=== PATIENT | female | born 1955 | race Caucasian/White ===

== ENCOUNTER 2017-06-30 07:57 | Day surgery (SDC) | payer MEDICARE ==
[2017-06-29 08:24] VITALS: BMI 32.9
[~2017-06-30 07:57] MED LIST: LACTATED RINGERS 1,000 ML IV ONE
[2017-06-30 08:24] LABS: Glucose,Whole Blood 140 mg/dL (75-99)
[2017-06-30] MEDS ORDERED: ONDANSETRON 4 MG/2 ML VIAL IVP ONE (08:25)
[2017-06-30] MEDS ORDERED: PROPOFOL 10 MG/ML 20 ML VIAL IV ONE (08:27)
[2017-06-30 08:29] VITALS: RESP 16; TEMP 98.8
--- NOTE | 2017-06-30 09:19 | P.PCN ---
Date of Procedure: 06/30/17 Procedure(s) Performed: Procedures: 1. Esophagogastroduodenoscopy and biopsy. 2. Colonoscopy and biopsy. Preoperative diagnosis: Epigastric pain, change in bowels and rectal bleeding. Postoperative diagnosis: 1. Sliding hiatal hernia with no obvious esophagitis or complicated reflux disease. 2. Gastritis with no ulcers or gastric outlet obstruction. 3. Multiple biopsies obtained from the duodenum, antrum, cardia and esophagus. 4. 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 5. Biopsies obtained from the terminal ileum and random colon and sigmoid. Preparation: HalfLytely prep. Sedation: Was provided by anesthesia. Brief clinical history: The patient is a 61-year-old female who has been experiencing epigastric pain and multiple loose bowel movements over the last year or so. The patient has history of diabetes mellitus and had issues with irritable bowel syndrome in the past. Her last colonoscopy 5 or 6 years ago was normal. Because of the persistent symptoms she is scheduled for this evaluation. Procedure: With the patient on her left lateral decubitus position and after informed consent and adequate sedation, I passed the Olympus-GIF 160 video upper endoscope through the cricopharyngeus down the esophagus. The esophagus did not show any obvious erosions or ulcers. There were no strictures or Strong's esophagus. There was a small sliding hiatal hernia then the endoscope was passed into the stomach which was insufflated with air and inspected in detail including the retroflex view in the cardia. There was some mottling and erythema in the antrum and fading erosions and there was prominence of the fold and friability in the cardia but there were no ulcers or bleeding. Pyloric channel did not show any ulcers. Duodenal bulb, post bulbar area and descending duodenum appeared within normal limits. Because of her symptoms, I obtained biopsies from the duodenum, antrum, cardia and esophagus then the endoscope was withdrawn and I proceeded with the colonoscopy. Perianal area did not show any fissures or fistulas. There were no masses felt on digital rectal examination. The Olympus CFQ 160L video colonoscope was then inserted in the rectum in the usual fashion and advanced to the cecum. I intubated the ileocecal valve and examined the terminal ileum. Terminal ileum and colon appeared healthy up to around 30 cm from the anal canal where there was continuous abnormality of the mucosa consisting of edema, erythema, friability, small ulcerations but no exudation or spontaneous bleeding. 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 No polyps or tumors were seen or any obvious diverticular disease. I obtained biopsies from the terminal ileum, random colon as well as from the sigmoid before the endoscope was withdrawn. The patient tolerated the procedure well. Plan: I summarized the findings to the patient. I would go ahead and start her on mesalamine. I will see her in follow-up in the office and make additional recommendations based on her course and biopsy results.. I will keep you updated on her progress.
[2017-06-30 09:23] VITALS: BP 144/76
[2017-06-30 09:35] LABS: Glucose,Whole Blood 122 mg/dL (75-99)
[2017-06-30 09:36] VITALS: PULSE 68
== END 2017-06-30 10:07 | disposition home or self-care (01) ==
LOC: ORWHC2ENDO 07:57
DX: K51.311 Ulcerative (chronic) rectosigmoiditis with rectal bleeding (principal); K29.50 Unspecified chronic gastritis without bleeding; K44.9 Diaphragmatic hernia without obstruction or gangrene; E11.9 Type 2 diabetes mellitus without complications; I10 Essential (primary) hypertension; E78.5 Hyperlipidemia, unspecified; K21.9 Gastro-esophageal reflux disease without esophagitis; Z79.84 Long term (current) use of oral hypoglycemic drugs; Z79.899 Other long term (current) drug therapy; Z91.040 Latex allergy status; Z88.0 Allergy status to penicillin; Z88.2 Allergy status to sulfonamides; Z88.8 Allergy status to other drugs, medicaments and biological substances; Z91.09 Other allergy status, other than to drugs and biological substances
CPT/HCPCS: 88305; 45380; 43239; J2405; J2704

== ENCOUNTER → 2018-06-05 | Outpatient (CLI) | payer MEDICARE ==
--- NOTE | 2018-06-06 08:57 | MM ---
Reason for exam: clinical finding. Last mammogram was performed 2 years and 1 month ago. History: Patient is postmenopausal. Physical Findings: Nurse did not find any significant physical abnormalities on exam. MG 3D Diag Mammo W/Cad JIMBO Bilateral CC and MLO view(s) were taken. Prior study comparison: April 22, 2016, bilateral MG 3d screening mammo w/cad. November 23, 2012, bilateral digital screening mammo w/CAD. There are scattered fibroglandular densities. There is chronic nodularity bilaterally. There is no dominant lesion. No significant new findings when compared with previous films. These results were verbally communicated with the patient and result sheet given to the patient on 06/05/18. ASSESSMENT: Benign, BI-RAD 2 RECOMMENDATION: Routine screening mammogram of both breasts in 1 year. Manage patient on a clinical basis.
== END | disposition home or self-care (01) ==
LOC: RADMAMWWP 09:44
PROVIDERS: ATTEND Internal Medicine
DX: N64.4 Mastodynia (principal)
CPT/HCPCS: 77066; G0279; 77062

== ENCOUNTER 2018-07-13 07:22 | Day surgery (SDC) | payer MEDICARE ==
[2018-07-13 08:05] VITALS: TEMP 97.4
[2018-07-13 08:20] LABS: Glucose,Whole Blood 159 mg/dL (75-99)
[2018-07-13] MEDS ORDERED: MIDAZOLAM 2 MG/2 ML VIAL IV ONE ×2 (08:20→08:28)
[2018-07-13] MEDS ORDERED: ONDANSETRON 4 MG/2 ML VIAL IVP ONE ×2 (08:20→08:28)
[2018-07-13] MEDS ORDERED: LIDOCAINE 1% 20 ML VIAL (10MG/ML) FOR IV START INTRADERMA ONE (08:28)
[2018-07-13] MEDS ORDERED: LACTATED RINGERS 1,000 ML IV ONE (08:30)
[2018-07-13] MEDS ORDERED: LIDOCAINE 1% INJ 10MG/ML (20 ML MDV) ONE (08:37)
[2018-07-13] MEDS ORDERED: PROPOFOL 10 MG/ML 20 ML VIAL IV ONE (08:37)
[2018-07-13 09:24] VITALS: BP 124/54; PULSE 70; RESP 18
--- NOTE | 2018-07-13 09:40 | P.PCN ---
Date of Procedure: 07/13/18 Procedure(s) Performed: Procedure: Esophagogastroduodenoscopy and biopsy. Preoperative diagnosis: Gastroesophageal reflux, epigastric pain and diarrhea. Postoperative diagnosis: 1. Sliding hiatal hernia with no definite esophagitis or complicated reflux disease. 2. Mild gastritis and duodenitis. 3. Biopsies obtained from the duodenum, antrum and esophagus. Preparation and sedation: Was provided by anesthesia. Brief clinical history: The patient is a 62-year-old female who was evaluated in the office in May for symptoms of epigastric pain and acid reflux. I started her on Pepcid with the working of diagnosis of gastroesophageal reflux disease, but, apparently , she was ALLERGIC to this medication and said that she had vomiting and diarrhea for more than a week after she stopped the medication. She felt better on PPI. She denied any alarm symptoms. This evaluation is to assess for esophagitis, complicated reflux disease or other pathology. Procedure: With the patient on her left lateral decubitus position and after informed consent and adequate sedation, I passed the Olympus-GIF H1 90 video upper endoscope through the cricopharyngeus down the esophagus. GE junction was around 36 cm from the incisors and there was a less than 1 cm sliding hiatal hernia but no obvious esophagitis or complicated reflux disease. The endoscope was then passed into the stomach which was insufflated with air and inspected in detail including the retroflex view in the cardia. There was some mottling and erythema in the antrum but no ulcers or erosions. Pyloric channel did not show any ulcers. Duodenal bulb, post bulbar area and descending duodenum showed minimal erythema. I obtained biopsies from the duodenum, antrum and esophagus then the endoscope was withdrawn. The patient tolerated the procedure well. Plan: The patient was reassured. Will await biopsy results and make further plans based on her course and biopsy results.
== END 2018-07-13 09:50 | disposition home or self-care (01) ==
LOC: ORWHC2ENDO 07:22
DX: K21.0 Gastro-esophageal reflux disease with esophagitis (principal); K29.50 Unspecified chronic gastritis without bleeding; K29.80 Duodenitis without bleeding; K31.9 Disease of stomach and duodenum, unspecified; K44.9 Diaphragmatic hernia without obstruction or gangrene; Z88.0 Allergy status to penicillin; Z88.2 Allergy status to sulfonamides; Z88.8 Allergy status to other drugs, medicaments and biological substances; E11.9 Type 2 diabetes mellitus without complications; I10 Essential (primary) hypertension; Z91.040 Latex allergy status; Z79.84 Long term (current) use of oral hypoglycemic drugs
CPT/HCPCS: 88305; 43239; J2250; J2405; J2001; J2704

== ENCOUNTER → 2018-12-08 | Outpatient (CLI) | payer MEDICARE ==
--- NOTE | 2018-12-08 13:22 | CT ---
EXAMINATION TYPE: CT soft tissue neck wo con DATE OF EXAM: 12/08/2018 HISTORY: Sore, itchy throat. COMPARISON: None CT DLP: 602 mGycm. Automated Exposure Control for Dose Reduction was Utilized. TECHNIQUE: CT scan of the neck is performed without contrast FINDINGS: Lack of intravenous contrast could compromise sensitivity. Airway: No gross abnormality seen. Parotid/submandibular glands: No gross abnormality seen. Carotid/Vascular Structures: Not evaluated due to lack of contrast and there is atheromatous change w ithin the transverse aorta Osseous Structures: No significant degenerative disc change is evident. 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 * Other: None IMPRESSION: No significant abnormality is seen.
== END ==
LOC: RADCTMAIN 10:19
PROVIDERS: ATTEND Otolaryngology
DX: M54.2 Cervicalgia (principal)
CPT/HCPCS: 36415; 70490; 82565; 84520

== ENCOUNTER 2018-12-11 06:45 | Emergency (ER) | payer MEDICARE ==
[2018-12-11 06:53] VITALS: TEMP 97.9
[2018-12-11] MEDS ORDERED: SODIUM CHLORIDE 0.9% 1,000 ML IV ONE (07:24)
[2018-12-11 08:09] LABS: Basophils % (A) 1 %; Eosinophils # (A) 0.2 k/uL (0-0.7); Eosinophils % (A) 3 %; HCT 37.1 % (34.0-46.0); HGB 12.3 gm/dL (11.4-16.0); Lymphocytes # (A) 1.8 k/uL (1.0-4.8); Lymphocytes % (A) 29 %; MCH 29.9 pg (25.0-35.0); MCHC 33.1 g/dL (31.0-37.0); MCV 90.5 fL (80.0-100.0); Mean Platelet Volume 7.4; Monocytes # (A) 0.5 k/uL (0-1.0); Monocytes % (A) 8 %; Neutrophils # (A) 3.6 k/uL (1.3-7.7); Neutrophils % (A) 58 %; Platelet Count 299 k/uL (150-450); RDW 13.7 % (11.5-15.5); WBC 6.3 k/uL (3.8-10.6)
[2018-12-11 08:16] LABS: Appearance,Urine Cloudy (Clear); Bacteria,Urine Few /hpf; Bilirubin,Urine Negative (Negative); Blood,Urine Negative (Negative); Color,Urine Yellow; Glucose,Urine (UA) Negative (Negative); Hyaline Casts,Urine 28 /lpf (0-2); Ketones,Urine Negative (Negative); Leukocyte Esterase,Urine Small (Negative); Mucus,Urine Rare /hpf; Nitrite,Urine Negative (Negative); PH, Urine 5.5 (5.0-8.0); Protein,Urine 1+ (Negative); RBC,Urine 4 /hpf (0-5); Squamous Epithelial Cell,Urine 13 /hpf (0-4); Urobilinogen,Urine <2.0 mg/dL (<2.0)
--- NOTE | 2018-12-11 08:16 | ED ---
General Adult HPI - General Chief complaint: Headache Stated complaint: Nausea Time Seen by Provider: 12/11/18 07:03 Source: patient, RN notes reviewed Mode of arrival: ambulatory Limitations: no limitations - History of Present Illness Initial comments: This a 63-year-old female presents emergency Department with multiple complaints. Patient's primary complaint today is headache and nausea. Patient states that she has not felt well over the last week or so has been having that she was sore throat and a fullness feeling in which she was seen by ENT shoulder may related to drainage or infection though they sent her for CT of her neck to rule out mass. Patient was scheduled to have CT with contrast though her kidney function was not well enough for contrast. She states she has no history of prior to this patient states that she does take multiple medications but cannot room last time she had any blood work. Patient denies fever, chills, neck pain, neck stiffness patient states her headache is frontal in nature and not her typical headache. Patient was given Zofran by EMS she denies any chest pain but states that she has been having issues with diarrhea and states that she feels that everything that she eats goes right through her. Patient does state metformin but she has been taking this for a long period of time. She does admi t that she has anxiety and that she has been stressing about her plane flight and her health problems. - Related Data Home Medications Medication Instructions Recorded Confirmed Aspirin EC [Ecotrin] 81 mg PO HS 10/14/15 12/11/18 Benazepril HCl 20 mg PO HS 10/14/15 12/11/18 OXcarbazepine [Trileptal] 150 mg PO HS 10/16/15 12/11/18 Cholecalciferol (Vitamin D3) 2,000 unit PO HS 06/29/17 12/11/18 [Vitamin D3] Prochlorperazine [Compazine] 10 mg PO Q6H PRN 06/29/17 12/11/18 ALPRAZolam [Xanax] 0.25 mg PO TID PRN 07/13/18 12/11/18 Calcium Carbonate/Vitamin D3 1 tab PO HS 07/13/18 12/11/18 [Calcium 250-D Tablet] Diclofenac Sodium/Misoprostol 1 tab PO BID PRN 07/13/18 12/11/18 [Arthrotec 50 mg-200 Mcg Tab] Doxycycline [Vibramycin] 50 mg PO DAILY 07/13/18 12/11/18 glipiZIDE [Glucotrol] 5 mg PO AC-BRKFST 07/13/18 12/11/18 Atorvastatin [Lipitor] 20 mg PO DAILY 12/11/18 12/11/18 metFORMIN HCL 2,000 mg PO BID 12/11/18 12/11/18 Allergies Allergy/AdvReac Type Severity Reaction Status Date / Time famotidine [From Pepcid] Allergy THROWING Verified 12/11/18 06:52 UP, BLOODY DIARRHEA latex Allergy Unknown Verified 12/11/18 06:52 Penicillins Allergy Unknown Verified 12/11/18 06:52 Childhood Sulfa (Sulfonamide Allergy Rash/Hives Verified 12/11/18 06:52 Antibiotics) adhesive tape AdvReac Rash/Hives Verified 12/11/18 06:52 azithromycin AdvReac Unknown Verified 12/11/18 07:49 [From Zithromax Z-Berto] ibuprofen [From Motrin] AdvReac KIDNEY'S Verified 12/11/18 07:54 prednisone AdvReac Swelling Verified 12/11/18 06:52 steroids AdvReac Unknown Uncoded 12/11/18 07:49 Review of Systems ROS Statement: Those systems with pertinent positive or pertinent negative responses have been documented in the HPI. ROS Other: All systems not noted in ROS Statement are negative. Past Medical History Past Medical History: Diabetes Mellitus, Hyperlipidemia, Hypertension Additional Past Medical History / Comment(s): NIDDM type II. gastritis. arthritis. ibs. g-annulare. COLITIS History of Any Multi-Drug Resistant Organisms: None Reported Past Surgical History: Cholecystectomy, Orthopedic Surgery Additional Past Surgical History / Comment(s): 2006 EGD, 2 left knee surgeries- arthroscopic and open knee surgery, bx rt arm Past Anesthesia/Blood Transfusion Reactions: Motion Sickness, Postoperative Nausea & Vomiting (PONV) Past Psychological History: Anxiety, Bipolar, Schizophrenia Smoking Status: Never smoker Past Alcohol Use History: None Reported Past Drug Use History: None Reported - Past Family History Father Family Medical History: Cancer Additional Family Medical History / Comment(s): Father of pancreatic cancer at the age of 52 yrs. Mother History Unknown: Yes General Exam Limitations: no limitations General appearance: alert, in no apparent distress Head exam: Present: atraumatic, normocephalic, normal inspection Eye exam: Present: normal appearance, PERRL, EOMI. Absent: scleral icterus, conjunctival injection, periorbital swelling ENT exam: Present: normal exam, normal oropharynx, mucous membranes moist Neck exam: Present: normal inspection, full ROM. Absent: tenderness, meningismus, lymphadenopathy Respiratory exam: Present: normal lung sounds bilaterally. Absent: respiratory distress, wheezes, rales, rhonchi, stridor Cardiovascular Exam: Present: regular rate, normal rhythm, normal heart sounds. Absent: systolic murmur, diastolic murmur, rubs, gallop, clicks GI/Abdominal exam: Present: soft, normal bowel sounds. Absent: distended, tenderness, guarding, rebound, rigid Neurological exam: Present: alert, oriented X3, CN II-XII intact Psychiatric exam: Present: anxious Skin exam: Present: warm, dry, intact, normal color. Absent: rash Course Vital Signs 12/11/18 12/11/18 12/11/18 06:48 07:52 10:03 Temperature 97.9 F Pulse Rate 79 75 76 Respiratory 18 16 16 Rate Blood Pressure 131/74 108/72 126/78 O2 Sat by Pulse 97 98 99 Oximetry EKG Findings - EKG Comments: EKG Findings:: EKG performed at 8:22 normal sinus rhythm rate of 61. 150 QRS 92 QT status QTC 380/82 Medical Decision Making - Medical Decision Making This a 63-year-old female presented emergency 5 for multiple complaints. Primary complaint headache. CT unremarkable. Patient repeat labs secondary to elevated kidney function a few days ago. Does show some mild improvement we did a long discussion regarding medications he is to discontinue any anti- inflammatories discussed discontinuing metformin and patricia inhibitors with PCP. Patient feels improved and will be started at this time - Lab Data Result diagrams: 12/11/18 07:35 12/11/18 07:35 Lab Results 12/11/18 12/11/18 12/11/18 Range/Units 07:35 07:35 07:35 WBC 6.3 (3.8-10.6) k/uL RBC 4.10 (3.80-5.40) m/uL Hgb 12.3 (11.4-16.0) gm/dL Hct 37.1 (34.0-46.0) % MCV 90.5 (80.0-100.0) fL MCH 29.9 (25.0-35.0) pg MCHC 33.1 (31.0-37.0) g/dL RDW 13.7 (11.5-15.5) % Plt Count 299 (150-450) k/uL Neutrophils % 58 % Lymphocytes % 29 % Monocytes % 8 % Eosinophils % 3 % Basophils % 1 % Neutrophils # 3.6 (1.3-7.7) k/uL Lymphocytes # 1.8 (1.0-4.8) k/uL Monocytes # 0.5 (0-1.0) k/uL Eosinophils # 0.2 (0-0.7) k/uL Basophils # 0.0 (0-0.2) k/uL Sodium 132 L (137-145) mmol/L Potassium 5.2 H (3.5-5.1) mmol/L Chloride 97 L (98-107) mmol/L Carbon Dioxide 22 (22-30) mmol/L Anion Gap 13 mmol/L BUN 54 H (7-17) mg/dL Creatinine 1.60 H (0.52-1.04) mg/dL Est GFR (CKD-EPI)AfAm 40 (>60 ml/min/1.73 sqM) Est GFR (CKD-EPI)NonAf 34 (>60 ml/min/1.73 sqM) Glucose 160 H (74-99) mg/dL Calcium 10.8 H (8.4-10.2) mg/dL Total Bilirubin 0.5 (0.2-1.3) mg/dL AST 22 (14-36) U/L ALT 40 (9-52) U/L Alkaline Phosphatase 87 (38-126) U/L Troponin I <0.012 (0.000-0.034) ng/mL Total Protein 7.4 (6.3-8.2) g/dL Albumin 4.0 (3.5-5.0) g/dL Lipase 532 H (23-300) U/L Urine Color Urine Appearance (Clear) Urine pH (5.0-8.0) Ur Specific [place] (1.001-1.035) Urine Protein (Negative) Urine Glucose (UA) (Negative) Urine Ketones (Negative) Urine Blood (Negative) Urine Nitrite (Negative) Urine Bilirubin (Negative) Urine Urobilinogen (<2.0) mg/dL Ur Leukocyte Esterase (Negative) Urine RBC (0-5) /hpf Urine WBC (0-5) /hpf Ur Squamous Epith Cells (0-4) /hpf Urine Bacteria (None) /hpf Hyaline Casts (0-2) /lpf Urine Mucus (None) /hpf 12/11/18 Range/Units 07:35 WBC (3.8-10.6) k/uL RBC (3.80-5.40) m/uL Hgb (11.4-16.0) gm/dL Hct (34.0-46.0) % MCV (80.0-100.0) fL MCH (25.0-35.0) pg MCHC (31.0-37.0) g/dL RDW (11.5-15.5) % Plt Count (150-450) k/uL Neutrophils % % Lymphocytes % % Monocytes % % Eosinophils % % Basophils % % Neutrophils # (1.3-7.7) k/uL Lymphocytes # (1.0-4.8) k/uL Monocytes # (0-1.0) k/uL Eosinophils # (0-0.7) k/uL Basophils # (0-0.2) k/uL Sodium (137-145) mmol/L Potassium (3.5-5.1) mmol/L Chloride (98-107) mmol/L Carbon Dioxide (22-30) mmol/L Anion Gap mmol/L BUN (7-17) mg/dL Creatinine (0.52-1.04) mg/dL Est GFR (CKD-EPI)AfAm (>60 ml/min/1.73 sqM) Est GFR (CKD-EPI)NonAf (>60 ml/min/1.73 sqM) Glucose (74-99) mg/dL Calcium (8.4-10.2) mg/dL Total Bilirubin (0.2-1.3) mg/dL AST (14-36) U/L ALT (9-52) U/L Alkaline Phosphatase (38-126) U/L Troponin I (0.000-0.034) ng/mL Total Protein (6.3-8.2) g/dL Albumin (3.5-5.0) g/dL Lipase (23-300) U/L Urine Color Yellow Urine Appearance Cloudy H (Clear) Urine pH 5.5 (5.0-8.0) Ur Specific [place] 1.020 (1.001-1.035) Urine Protein 1+ H (Negative) Urine Glucose (UA) Negative (Negative) Urine Ketones Negative (Negative) Urine Blood Negative (Negative) Urine Nitrite Negative (Negative) Urine Bilirubin Negative (Negative) Urine Urobilinogen <2.0 (<2.0) mg/dL Ur Leukocyte Esterase Small H (Negative) Urine RBC 4 (0-5) /hpf Urine WBC 7 H (0-5) /hpf Ur Squamous Epith Cells 13 H (0-4) /hpf Urine Bacteria Few H (None) /hpf Hyaline Casts 28 H (0-2) /lpf Urine Mucus Rare H (None) /hpf Disposition Clinical Impression: Headache, Renal insufficiency, Nausea Disposition: HOME SELF-CARE Instructions (If sedation given, give patient instructions): Acute Headache (ED) Additional Instructions: Please return to the Emergency Department if symptoms worsen or any other concerns. Is patient prescribed a controlled substance at d/c from ED?: No Referrals: Fortunato Mak DO [Primary Care Provider] - 1-2 days Time of Disposition: 10:11
[2018-12-11 08:21] LABS: Calcium 10.8 mg/dL (8.4-10.2); Potassium 5.2 mmol/L (3.5-5.1); Total Bilirubin 0.5 mg/dL (0.2-1.3); Total Protein 7.4 g/dL (6.3-8.2)
--- NOTE | 2018-12-11 08:26 | CT ---
EXAMINATION TYPE: CT brain wo con DATE OF EXAM: 12/11/2018 HISTORY: Severe CARO and nausea CT DLP: 1038.4 mGycm. Automated Exposure Control for Dose Reduction was Utilized. TECHNIQUE: CT scan of the head is performed without contrast. COMPARISON: None. FINDINGS: There is no acute intracranial hemorrhage or midline shift identified. There is diffuse v entricular and sulcal prominence consistent with minimal diffuse age-related cerebral atrophy. There is low-attenuation in the periventricular white matter consistent with mild to moderate chronic smal l vessel ischemic change. The globes are intact and the visualized sinuses are clear. Soft tissue density left external auditory canal is felt to reflect cerumen. IMPRESSION: No acute intracranial hemorrhage or midline shift. There is minimal diffuse age-related cerebral atrophy and [id number] chronic small vessel ischemic change noted.
[2018-12-11 10:04] VITALS: BP 126/78; PULSE 76; RESP 16
== END 2018-12-11 10:05 | disposition home or self-care (01) ==
LOC: EC 06:45
DX: N28.9 Disorder of kidney and ureter, unspecified (principal); R51 Headache; R11.0 Nausea; E11.9 Type 2 diabetes mellitus without complications; E78.5 Hyperlipidemia, unspecified; I10 Essential (primary) hypertension; F41.9 Anxiety disorder, unspecified; F31.9 Bipolar disorder, unspecified; Z79.84 Long term (current) use of oral hypoglycemic drugs; Z79.82 Long term (current) use of aspirin; Z79.899 Other long term (current) drug therapy; Z88.0 Allergy status to penicillin; Z88.2 Allergy status to sulfonamides; Z88.8 Allergy status to other drugs, medicaments and biological substances; Z88.1 Allergy status to other antibiotic agents; Z91.040 Latex allergy status; Z88.6 Allergy status to analgesic agent
CPT/HCPCS: 36415; 70450; 80053; 81001; 83690; 84484; 85025; 93005; 96360; 99284

== ENCOUNTER 2019-04-21 11:32 | Emergency (ER) | payer MEDICARE ==
[2019-04-21 11:42] VITALS: BP 159/85; PULSE 89; RESP 18; TEMP 98.5
[2019-04-21] MEDS ORDERED: LIDOCAINE 5% PATCH TOPICAL STA (11:49)
[2019-04-21] MEDS ORDERED: CYCLOBENZAPRINE 10 MG TAB PO STA (11:50)
--- NOTE | 2019-04-21 12:36 | ED ---
Back Pain [facility] - General Chief Complaint: Back Pain/Injury Stated Complaint: Back pain Time Seen by Provider: 04/21/19 11:44 Source: patient Limitations: no limitations - History of Present Illness Initial Comments: patient is 63-year-old female with history of arthritis and chronic back pain presenting to emergency by with a chief complaint of back pain. Patient reports she was picking through a garbage 3 days ago and while she was bending over she developed sudden onset of pain in the lumbosacral region. she states that it feels like "a baggy ". She reports the pain was getting better over the last few days it has not completely resolved. Patient denies any saddle anesthesia, urinary or bowel incontinence.denies any numbness or tingling. She reports taking Tylenol with some improvement in his symptoms. - Related Data Home Medications Medication Instructions Recorded Confirmed Aspirin EC [Ecotrin] 81 mg PO HS 10/14/15 12/11/18 Benazepril HCl 20 mg PO HS 10/14/15 12/11/18 OXcarbazepine [Trileptal] 150 mg PO HS 10/16/15 12/11/18 Cholecalciferol (Vitamin D3) 2,000 unit PO HS 06/29/17 12/11/18 [Vitamin D3] Prochlorperazine [Compazine] 10 mg PO Q6H PRN 06/29/17 12/11/18 ALPRAZolam [Xanax] 0.25 mg PO TID PRN 07/13/18 12/11/18 Calcium Carbonate/Vitamin D3 1 tab PO HS 07/13/18 12/11/18 [Calcium 250-D Tablet] Diclofenac Sodium/Misoprostol 1 tab PO BID PRN 07/13/18 12/11/18 [Arthrotec 50 mg-200 Mcg Tab] Doxycycline [Vibramycin] 50 mg PO DAILY 07/13/18 12/11/18 glipiZIDE [Glucotrol] 5 mg PO AC-BRKFST 07/13/18 12/11/18 Atorvastatin [Lipitor] 20 mg PO DAILY 12/11/18 12/11/18 metFORMIN HCL 2,000 mg PO BID 12/11/18 12/11/18 Previous Rx's Medication Instructions Recorded Cyclobenzaprine [Flexeril] 5 mg PO TID PRN #15 tablet 04/21/19 Lidocaine 5% Patch [Lidoderm] 1 patch TOPICAL DAILY #6 patch 04/21/19 Allergies Allergy/AdvReac Type Severity Reaction Status Date / Time famotidine [From Pepcid] Allergy THROWING Verified 04/21/19 11:42 UP, BLOODY DIARRHEA latex Allergy Unknown Verified 04/21/19 11:42 Penicillins Allergy Unknown Verified 04/21/19 11:42 Childhood Sulfa (Sulfonamide Allergy Rash/Hives Verified 04/21/19 11:42 Antibiotics) adhesive tape AdvReac Rash/Hives Verified 04/21/19 11:42 azithromycin AdvReac Unknown Verified 04/21/19 11:42 [From Zithromax Z-Berto] ibuprofen [From Motrin] AdvReac KIDNEY'S Verified 04/21/19 11:42 prednisone AdvReac Swelling Verified 04/21/19 11:42 steroids AdvReac Unknown Uncoded 04/21/19 11:42 Review of Systems ROS Statement: Those systems with pertinent positive or pertinent negative responses have been documented in the HPI. ROS Other: All systems not noted in ROS Statement are negative. Past Medical History Past Medical History: Diabetes Mellitus, Hyperlipidemia, Hypertension Additional Past Medical History / Comment(s): NIDDM type II , gastritis, arthritis, ibs, g-annulare, COLITIS History of Any Multi-Drug Resistant Organisms: None Reported Past Surgical History: Cholecystectomy, Orthopedic Surgery Additional Past Surgical History / Comment(s): 2006 EGD, 2 left knee surgeries- arthroscopic and open knee surgery, bx rt arm Past Anesthesia/Blood Transfusion Reactions: Motion Sickness, Postoperative Nausea & Vomiting (PONV) Past Psychological History: Anxiety, Bipolar, Schizophrenia Smoking Status: Never smoker Past Alcohol Use History: None Reported Past Drug Use History: None Reported - Past Family History Father Family Medical History: Cancer Additional Family Medical History / Comment(s): Father of pancreatic cancer at the age of 52 yrs. Mother History Unknown: Yes General Exam Limitations: no limitations General appearance: alert, in no apparent distress Head exam: Present: atraumatic, normocephalic, normal inspection Eye exam: Present: normal appearance Pupils: Present: normal accommodation ENT exam: Present: normal exam, normal oropharynx, mucous membranes moist, TM's normal bilaterally, normal external ear exam Neck exam: Present: normal inspection, full ROM Respiratory exam: Present: normal lung sounds bilaterally Cardiovascular Exam: Present: regular rate, normal rhythm, normal heart sounds Extremities exam: Present: normal inspection, full ROM, normal capillary refill Back exam: Present: normal inspection, paraspinal tenderness (right paraspinal tenderness). Absent: full ROM (plan exacerbated with right rotation.), CVA tenderness (R), CVA tenderness (L) Neurological exam: Present: alert, oriented X3, normal gait Psychiatric exam: Present: normal affect, normal mood Skin exam: Present: warm, dry, intact, normal color Course Vital Signs 04/21/19 04/21/19 11:39 13:23 Temperature 98.5 F 98.5 F Pulse Rate 89 89 Respiratory 18 18 Rate Blood Pressure 159/85 159/85 O2 Sat by Pulse 96 96 Oximetry Medical Decision Making - Medical Decision Making patient is a 63-year-old female with history of arthritis and chronic back pain is presenting to the emergency department with a chief complaint of low back pain.on exam patient has some right paraspinal tenderness without any radiation. She has limited range of motion with right rotation that is exacerbating the pain. Patient was given a Lidoderm patch. On reevaluation patient reports the pain has slightly improved. I offered the patient Flexeril but she does not have a ride home. She has poor kidney function since no NSAIDs were administered.no paresthesias or extremity weakness. Advised the patient to take Tylenol when she gets home. Patient also prescribed Flexeril advised not to take the medication when driving or operating heavy machinery. 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 Strict return parameters were thoroughly discussed with patient was understanding and agreeable. No cauda equina. No red flags. Case discussed with physician. Disposition Clinical Impression: Mechanical back pain Disposition: HOME SELF-CARE Condition: Stable Instructions (If sedation given, give patient instructions): Acute Low Back Pain (ED) Additional Instructions: please take prescribed medication as directed. Please follow with primary care. Please return to emergency department if symptoms worsen. Prescriptions: Cyclobenzaprine [Flexeril] 5 mg PO TID PRN #15 tablet PRN Reason: Muscle Spasm Lidocaine 5% Patch [Lidoderm] 1 patch TOPICAL DAILY #6 patch Is patient prescribed a controlled substance at d/c from ED?: No Referrals: Pratima Mao III, MD [Primary Care Provider] - 1-2 days Alirio Garcia MD [STAFF PHYSICIAN] - 1-2 days Time of Disposition: 13:04
[2019-04-21] MEDS ORDERED: CYCLOBENZAPRINE 10MG STARTER 3 TAB BTL PO STA (12:59)
== END 2019-04-21 13:24 | disposition home or self-care (01) ==
LOC: EC 11:32
DX: G89.29 Other chronic pain (principal); M19.90 Unspecified osteoarthritis, unspecified site; M54.5 Low back pain; E11.9 Type 2 diabetes mellitus without complications; E78.5 Hyperlipidemia, unspecified; I10 Essential (primary) hypertension; F41.9 Anxiety disorder, unspecified; F31.9 Bipolar disorder, unspecified; Z79.84 Long term (current) use of oral hypoglycemic drugs; Z79.899 Other long term (current) drug therapy; Z79.82 Long term (current) use of aspirin; Z88.8 Allergy status to other drugs, medicaments and biological substances; Z88.6 Allergy status to analgesic agent; Z88.1 Allergy status to other antibiotic agents; Z91.048 Other nonmedicinal substance allergy status; Z88.2 Allergy status to sulfonamides; Z88.0 Allergy status to penicillin; Z91.040 Latex allergy status
CPT/HCPCS: 99283

== ENCOUNTER 2019-09-10 10:15 | Emergency (ER) | payer MEDICARE ==
[2019-09-10 10:24] VITALS: TEMP 98.1
--- NOTE | 2019-09-10 10:53 | ED ---
General Adult HPI - General Chief complaint: Abdominal Pain Stated complaint: rectal bleeding Time Seen by Provider: 09/10/19 10:27 Source: patient, RN notes reviewed Mode of arrival: wheelchair Limitations: no limitations - History of Present Illness Initial comments: 64-year-old female with a possible history of hyperlipidemia, hypertension, IBS, gastritis, colitis, NIDDM presents to the emergency department for a chief complaint of rectal pain. Patient states that for the past 2 days she has had pain with producing bowel movements. States it feels like "razor blades" when she has bowel movements. Denies any associated abdominal pain. States that she was put on clindamycin 2 weeks ago and did have some rectal bleeding for about one week that since resolved. However today she did notice some rectal bleeding again with this pain when she woke up.Patient has no other complaints at this time including shortness of breath, chest pain, abdominal pain, nausea or vomiting, headache, or visual changes. - Related Data Home Medications Medication Instructions Recorded Confirmed Aspirin EC [Ecotrin] 81 mg PO HS 10/14/15 12/11/18 Benazepril HCl 20 mg PO HS 10/14/15 12/11/18 OXcarbazepine [Trileptal] 150 mg PO HS 10/16/15 12/11/18 Cholecalciferol (Vitamin D3) 2,000 unit PO HS 06/29/17 12/11/18 [Vitamin D3] Prochlorperazine [Compazine] 10 mg PO Q6H PRN 06/29/17 12/11/18 ALPRAZolam [Xanax] 0.25 mg PO TID PRN 07/13/18 12/11/18 Calcium Carbonate/Vitamin D3 1 tab PO HS 07/13/18 12/11/18 [Calcium 250-D Tablet] Diclofenac Sodium/Misoprostol 1 tab PO BID PRN 07/13/18 12/11/18 [Arthrotec 50 mg-200 Mcg Tab] Doxycycline [Vibramycin] 50 mg PO DAILY 07/13/18 12/11/18 glipiZIDE [Glucotrol] 5 mg PO AC-BRKFST 07/13/18 12/11/18 Atorvastatin [Lipitor] 20 mg PO DAILY 12/11/18 12/11/18 metFORMIN HCL 2,000 mg PO BID 12/11/18 12/11/18 Previous Rx's Medication Instructions Recorded Cyclobenzaprine [Flexeril] 5 mg PO TID PRN #15 tablet 04/21/19 Lidocaine 5% Patch [Lidoderm] 1 patch TOPICAL DAILY #6 patch 04/21/19 Docusate Sodium [Dok] 100 mg PO BID #20 capsule 09/10/19 Allergies Allergy/AdvReac Type Severity Reaction Status Date / Time famotidine [From Pepcid] Allergy THROWING Verified 09/10/19 10:24 UP, BLOODY DIARRHEA latex Allergy Unknown Verified 09/10/19 10:24 Penicillins Allergy Unknown Verified 09/10/19 10:24 Childhood Sulfa (Sulfonamide Allergy Rash/Hives Verified 09/10/19 10:24 Antibiotics) adhesive tape AdvReac Rash/Hives Verified 09/10/19 10:24 azithromycin AdvReac Unknown Verified 09/10/19 10:24 [From Zithromax Z-Berto] ibuprofen [From Motrin] AdvReac KIDNEY'S Verified 09/10/19 10:24 prednisone AdvReac Swelling Verified 09/10/19 10:24 steroids AdvReac Unknown Uncoded 09/10/19 10:24 Review of Systems ROS Statement: Those systems with pertinent positive or pertinent negative responses have been documented in the HPI. ROS Other: All systems not noted in ROS Statement are negative. Past Medical History Past Medical History: Diabetes Mellitus, Hyperlipidemia, Hypertension Additional Past Medical History / Comment(s): NIDDM type II , gastritis, arthritis, ibs, g-annulare, COLITIS, History of Any Multi-Drug Resistant Organisms: None Reported Past Surgical History: Cholecystectomy, Orthopedic Surgery Additional Past Surgical History / Comment(s): 2006 EGD, 2 left knee surgeries- arthroscopic and open knee surgery, bx rt arm Past Anesthesia/Blood Transfusion Reactions: Motion Sickness, Postoperative Nausea & Vomiting (PONV) Past Psychological History: Anxiety, Bipolar, Schizophrenia Smoking Status: Never smoker Past Alcohol Use History: None Reported Past Drug Use History: None Reported - Past Family History Father Family Medical History: Cancer Additional Family Medical History / Comment(s): Father of pancreatic cancer at the age of 52 yrs. Mother History Unknown: Yes General Exam Limitations: no limitations General appearance: alert, in no apparent distress Head exam: Present: atraumatic, normocephalic, normal inspection Eye exam: Present: normal appearance, PERRL, EOMI. Absent: scleral icterus, conjunctival injection, periorbital swelling ENT exam: Present: normal exam, mucous membranes moist Neck exam: Present: normal inspection, full ROM. Absent: tenderness, meningismus, lymphadenopathy Respiratory exam: Present: normal lung sounds bilaterally. Absent: respiratory distress, wheezes, rales, rhonchi, stridor Cardiovascular Exam: Present: regular rate, normal rhythm, normal heart sounds. Absent: systolic murmur, diastolic murmur, rubs, gallop, clicks GI/Abdominal exam: Present: soft, normal bowel sounds. Absent: distended, tenderness, guarding, rebound, rigid Rectal exam: Present: hemorrhoids (Nonthrombosed external hemorrhoids noted.), other (Significant pain with rectal exam around the anus.). Absent: bloody stool Course Vital Signs 09/10/19 10:19 Temperature 98.1 F Pulse Rate 104 H Respiratory 20 Rate Blood Pressure 151/82 O2 Sat by Pulse 100 Oximetry Medical Decision Making - Medical Decision Making HPI and physical exam is documented. Patient likely has anal fissure given "razor blades" when having a bowel movement as well as sharp pain with rectal exam. She does not have any abdominal tenderness. She does not have any gross blood on exam. CBC is unremarkable. His CMP does show hyperglycemia, patient is a jns-irbireu-lpzwftvdy diabetic. Patient agrees to oral rehydration. She will be given a subcu injection of 5 units of insulin. Patient just finished steroid taper yesterday which is likely the cause of her hyperglycemia however did wreck when she follow up with primary care to have further testing for this. Stool occult blood is positive however hemoglobin is stable. At this time I recommend stool softeners and sits baths as well as continuing the cream she is using. I recommend she follow up with GI specialist or primary care. She'll return here for any worsening symptoms. - Lab Data Result diagrams: 09/10/19 11:10 09/10/19 11:10 Lab Results 09/10/19 09/10/19 09/10/19 Range/Units 11:10 11:10 11:10 WBC 11.6 H (3.8-10.6) k/uL RBC 4.43 (3.80-5.40) m/uL Hgb 13.3 (11.4-16.0) gm/dL Hct 41.2 (34.0-46.0) % MCV 92.9 (80.0-100.0) fL MCH 30.1 (25.0-35.0) pg MCHC 32.4 (31.0-37.0) g/dL RDW 13.7 (11.5-15.5) % Plt Count 289 (150-450) k/uL Neutrophils % 68 % Lymphocytes % 25 % Monocytes % 4 % Eosinophils % 1 % Basophils % 0 % Neutrophils # 7.9 H (1.3-7.7) k/uL Lymphocytes # 2.9 (1.0-4.8) k/uL Monocytes # 0.5 (0-1.0) k/uL Eosinophils # 0.2 (0-0.7) k/uL Basophils # 0.0 (0-0.2) k/uL Sodium 134 L (137-145) mmol/L Potassium 4.3 (3.5-5.1) mmol/L Chloride 103 (98-107) mmol/L Carbon Dioxide 19 L (22-30) mmol/L Anion Gap 12 mmol/L BUN 37 H (7-17) mg/dL Creatinine 0.92 (0.52-1.04) mg/dL Est GFR (CKD-EPI)AfAm 77 (>60 ml/min/1.73 sqM) Est GFR (CKD-EPI)NonAf 67 (>60 ml/min/1.73 sqM) Glucose 367 H (74-99) mg/dL Calcium 10.3 H (8.4-10.2) mg/dL Stool Occult Blood Positive H (Negative) Disposition Clinical Impression: Hemorrhoid, Anal pain Disposition: HOME SELF-CARE Condition: Good Instructions (If sedation given, give patient instructions): Sitz Bath (DC), Anal Fissure (ED) Additional Instructions: Please drink plenty of fluids. Follow-up with primary care for a recheck of you r glucose. Follow up with GI or primary care for anal pain. Return to the emergency department for any worsening symptoms. Prescriptions: Docusate Sodium [Dok] 100 mg PO BID #20 capsule Is patient prescribed a controlled substance at d/c from ED?: No Referrals: Pratima Mao III, MD [Primary Care Provider] - 1-2 days Time of Disposition: 12:18
[2019-09-10 11:30] LABS: Basophils % (A) 0 %; Eosinophils # (A) 0.2 k/uL (0-0.7); Eosinophils % (A) 1 %; HCT 41.2 % (34.0-46.0); HGB 13.3 gm/dL (11.4-16.0); Lymphocytes # (A) 2.9 k/uL (1.0-4.8); Lymphocytes % (A) 25 %; MCH 30.1 pg (25.0-35.0); MCHC 32.4 g/dL (31.0-37.0); MCV 92.9 fL (80.0-100.0); Mean Platelet Volume 8.3; Monocytes # (A) 0.5 k/uL (0-1.0); Monocytes % (A) 4 %; Neutrophils # (A) 7.9 k/uL (1.3-7.7); Neutrophils % (A) 68 %; Platelet Count 289 k/uL (150-450); RBC 4.43 m/uL (3.80-5.40); RDW 13.7 % (11.5-15.5); WBC 11.6 k/uL (3.8-10.6)
[2019-09-10 11:45] LABS: Calcium 10.3 mg/dL (8.4-10.2); Potassium 4.3 mmol/L (3.5-5.1)
[2019-09-10] MEDS ORDERED: SODIUM CHLORIDE 0.9% 1,000 ML IV STA (11:47)
[2019-09-10] MEDS ORDERED: INSULIN ASPART (NovoLOG) 100 UNIT/ML VIAL SQ STA (11:50)
[2019-09-10 12:28] VITALS: BP 136/73; PULSE 90; RESP 18
== END 2019-09-10 12:54 | disposition home or self-care (01) ==
LOC: EC 10:15
DX: K64.4 Residual hemorrhoidal skin tags (principal); E11.65 Type 2 diabetes mellitus with hyperglycemia; E78.5 Hyperlipidemia, unspecified; I10 Essential (primary) hypertension; M19.90 Unspecified osteoarthritis, unspecified site; Z87.19 Personal history of other diseases of the digestive system; Z90.49 Acquired absence of other specified parts of digestive tract; Z79.82 Long term (current) use of aspirin; Z79.84 Long term (current) use of oral hypoglycemic drugs; Z79.1 Long term (current) use of non-steroidal anti-inflammatories (NSAID); Z79.899 Other long term (current) drug therapy; Z88.8 Allergy status to other drugs, medicaments and biological substances; Z91.040 Latex allergy status; Z88.0 Allergy status to penicillin; Z88.2 Allergy status to sulfonamides; Z91.048 Other nonmedicinal substance allergy status; Z88.1 Allergy status to other antibiotic agents; Z88.6 Allergy status to analgesic agent; Z53.29 Procedure and treatment not carried out because of patient's decision for other reasons; Z53.8 Procedure and treatment not carried out for other reasons
CPT/HCPCS: 36415; 80048; 82272; 85025; 99284

== ENCOUNTER 2020-07-12 07:59 | Emergency (ER) | payer MEDICARE ==
[2020-07-12 08:08] VITALS: PULSE 84; RESP 18; TEMP 98.1
--- NOTE | 2020-07-12 08:45 | ED ---
Female Urogenital HPI - General Chief complaint: Urogenital Stated complaint: Female Time Seen by Provider: 07/12/20 08:08 Source: patient Mode of arrival: ambulatory Limitations: no limitations - History of Present Illness Initial comments: 64yo female presenting for cc of vaginal lesion, dysuria. Patient states for months she feels a lesion occasionally when wiping the vagina-- she states it usually does hurt. She states it is pea size and she is not sure if it is present right now. Patient states she has had some burning with urination as concerned that is related. She denies vaginal discharge size external vaginal irritation she denies being sexually active she does concern for sexual transmitted diseases. Patient denies any fevers abdominal discomfort and nausea vomiting. Patient has no additional complaints upon arrival she appears well nontoxic in no acute distress. - Related Data Home Medications Medication Instructions Recorded Confirmed Aspirin EC [Ecotrin] 81 mg PO HS 10/14/15 12/11/18 RX: Benazepril HCl 20 mg PO HS 10/14/15 12/11/18 OXcarbazepine [Trileptal] 150 mg PO HS 10/16/15 12/11/18 Cholecalciferol (Vitamin D3) 2,000 unit PO HS 06/29/17 12/11/18 [Vitamin D3] Prochlorperazine [Compazine] 10 mg PO Q6H PRN 06/29/17 12/11/18 ALPRAZolam [Xanax] 0.25 mg PO TID PRN 07/13/18 12/11/18 Calcium Carbonate/Vitamin D3 1 tab PO HS 07/13/18 12/11/18 [Calcium 250-D Tablet] Diclofenac Sodium/Misoprostol 1 tab PO BID PRN 07/13/18 12/11/18 [Arthrotec 50 mg-200 Mcg Tab] Doxycycline [Vibramycin] 50 mg PO DAILY 07/13/18 12/11/18 glipiZIDE [Glucotrol] 5 mg PO AC-BRKFST 07/13/18 12/11/18 Atorvastatin [Lipitor] 20 mg PO DAILY 12/11/18 12/11/18 RX: metFORMIN HCL 2,000 mg PO BID 12/11/18 12/11/18 Previous Rx's Medication Instructions Recorded Cyclobenzaprine [Flexeril] 5 mg PO TID PRN #15 tablet 04/21/19 Lidocaine 5% Patch [Lidoderm] 1 patch TOPICAL DAILY #6 patch 04/21/19 RX: Docusate Sodium [Dok] 100 mg PO BID #20 capsule 09/10/19 Fluconazole [Diflucan] 150 mg PO DAILY 1 Days #1 tab 07/12/20 Allergies Allergy/AdvReac Type Severity Reaction Status Date / Time famotidine [From Pepcid] Allergy THROWING Verified 07/12/20 08:02 UP, BLOODY DIARRHEA latex Allergy Unknown Verified 07/12/20 08:02 Penicillins Allergy Unknown Verified 07/12/20 08:02 Childhood Sulfa (Sulfonamide Allergy Rash/Hives Verified 07/12/20 08:02 Antibiotics) adhesive tape AdvReac Rash/Hives Verified 07/12/20 08:02 azithromycin AdvReac Unknown Verified 07/12/20 08:02 [From Zithromax Z-Berto] ibuprofen [From Motrin] AdvReac KIDNEY'S Verified 07/12/20 08:02 prednisone AdvReac Swelling Verified 07/12/20 08:02 steroids AdvReac Unknown Uncoded 09/10/19 10:24 Review of Systems ROS Statement: Those systems with pertinent positive or pertinent negative responses have been documented in the HPI. ROS Other: All systems not noted in ROS Statement are negative. Past Medical History Past Medical History: Diabetes Mellitus, Hyperlipidemia, Hypertension Additional Past Medical History / Comment(s): NIDDM type II , gastritis, arthritis, ibs, g-annulare, COLITIS, History of Any Multi-Drug Resistant Organisms: None Reported Past Surgical History: Cholecystectomy, Orthopedic Surgery Additional Past Surgical History / Comment(s): 2006 EGD, 2 left knee surgeries- arthroscopic and open knee surgery, bx rt arm Past Anesthesia/Blood Transfusion Reactions: Motion Sickness, Postoperative Nausea & Vomiting (PONV) Past Psychological History: Anxiety, Bipolar, Schizophrenia Smoking Status: Never smoker Past Alcohol Use History: None Reported Past Drug Use History: None Reported - Past Family History Father Family Medical History: Cancer Additional Family Medical History / Comment(s): Father of pancreatic cancer at the age of 52 yrs. Mother History Unknown: Yes General Exam - General Exam Comments Initial Comments: General: The patient is awake and alert, in no distress, and does not appear acutely ill. Eye: Pupils are equal, round and reactive to light, extra-ocular movements are intact. No nystagmus. There is normal conjunctiva bilaterally. No signs of icterus. Ears, nose, mouth and throat: There are moist mucous membranes and no oral lesions. Neck: The neck is supple, there is no tenderness or JVD. Cardiovascular: There is a regular rate and rhythm. No murmur, rub or gallop is appreciated. Respiratory: Lungs are clear to auscultation, respirations are non-labored, breath sounds are equal. No wheezes, stridor, rales, or rhonchi. Gastrointestinal: Soft, non-distended, non-tender abdomen without masses or organomegaly noted. There is no rebound or guarding present. : No obvious redness or lesions, palpated in introitus/external vaginal region, no appreciated lesions. Patient has no discharge. no bleeding. some dryness noted. Musculoskeletal: Normal ROM, no tenderness. Strength 5/5. Sensation intact. Pulses equal bilaterally 2+. Neurological: A&O x 3. CN II-XII intact, There are no obvious motor or sensory deficits. Coordination appears grossly intact. Speech is normal. Skin: Skin is warm and dry and no rashes or lesions are noted. Psychiatric: Cooperative, appropriate mood & affect, normal judgment. Limitations: no limitations Course Vital Signs 07/12/20 07/12/20 08:03 08:50 Temperature 98.1 F Pulse Rate 84 Respiratory 18 Rate Blood Pressure 202/89 136/79 O2 Sat by Pulse 100 100 Oximetry Medical Decision Making - Medical Decision Making No obvious abnormality. Patient UA unremarkable. Patient recommended to f/u with OBGYN. Treated for yeast as patient states it occasionally itches/kearney externally. Patient states she does have an upcoming appointment with OBGYN scheduled. Pt case discussed with Malcolm who is agreeable to care plan and discharge. - Lab Data Lab Results 07/12/20 Range/Units 08:24 Urine Color Light Yellow Urine Appearance Clear (Clear) Urine pH 5.0 (5.0-8.0) Ur Specific [place] 1.018 (1.001-1.035) Urine Protein Negative (Negative) Urine Glucose (UA) Negative (Negative) Urine Ketones Negative (Negative) Urine Blood Negative (Negative) Urine Nitrite Negative (Negative) Urine Bilirubin Negative (Negative) Urine Urobilinogen <2.0 (<2.0) mg/dL Ur Leukocyte Esterase Negative (Negative) Disposition Clinical Impression: Hypertension, Vaginal lesion Disposition: HOME SELF-CARE Condition: Good Additional Instructions: Please use medication as discussed. Please follow-up with family doctor in the next 2 days, as well as OBGYN. Please return to emergency room if the symptoms increase or worsen or for any other concerns. Prescriptions: Fluconazole [Diflucan] 150 mg PO DAILY 1 Days #1 tab Is patient prescribed a controlled substance at d/c from ED?: No Referrals: Nonstaff,Physician [Primary Care Provider] - 1-2 days Time of Disposition: 09:01
[2020-07-12 08:49] LABS: Appearance,Urine Clear (Clear); Bilirubin,Urine Negative (Negative); Blood,Urine Negative (Negative); Color,Urine Light Yellow; Glucose,Urine (UA) Negative (Negative); Ketones,Urine Negative (Negative); Leukocyte Esterase,Urine Negative (Negative); Nitrite,Urine Negative (Negative); Protein,Urine Negative (Negative); Specific Gravity,Urine 1.018 (1.001-1.035); Urobilinogen,Urine <2.0 mg/dL (<2.0)
[2020-07-12 09:11] VITALS: BP 136/79
== END 2020-07-12 09:03 | disposition home or self-care (01) ==
LOC: EC 07:59
DX: N89.8 Other specified noninflammatory disorders of vagina (principal); R30.0 Dysuria; F41.9 Anxiety disorder, unspecified; F32.9 Major depressive disorder, single episode, unspecified; F20.9 Schizophrenia, unspecified; E11.9 Type 2 diabetes mellitus without complications; E78.5 Hyperlipidemia, unspecified; I10 Essential (primary) hypertension; Z79.84 Long term (current) use of oral hypoglycemic drugs; Z79.899 Other long term (current) drug therapy; Z88.0 Allergy status to penicillin; Z88.1 Allergy status to other antibiotic agents; Z88.2 Allergy status to sulfonamides; Z88.6 Allergy status to analgesic agent; Z88.8 Allergy status to other drugs, medicaments and biological substances; Z91.040 Latex allergy status; Z90.49 Acquired absence of other specified parts of digestive tract
CPT/HCPCS: 81003; 99283

== ENCOUNTER 2020-07-15 12:48 | Emergency (ER) | payer MEDICARE ==
[2020-07-15 13:02] VITALS: BP 131/75; PULSE 88; RESP 18; TEMP 98.4
--- NOTE | 2020-07-15 14:02 | ED ---
Female Urogenital HPI - General Chief complaint: Urogenital Stated complaint: revisit - female Time Seen by Provider: 07/15/20 13:05 Source: patient Mode of arrival: ambulatory Limitations: no limitations - History of Present Illness Initial comments: Patient is a 64-year-old female presenting to the emergency Department with complaints of a possible bump inside her vagina wall times last 1-2 weeks. Patient denies any fever or chills, no drainage from the area. She states she tried to get into her primary care physician as well as gynecology but has been unsuccessful. Patient states she was evaluated here recently, thought she might have a UTI, she did not. She states this bump has been "coming and going." No abdominal pain, no other complaints at this time. Her vital signs are stable upon arrival. - Related Data Home Medications Medication Instructions Recorded Confirmed Aspirin EC [Ecotrin] 81 mg PO HS 10/14/15 12/11/18 Benazepril HCl 20 mg PO HS 10/14/15 12/11/18 OXcarbazepine [Trileptal] 150 mg PO HS 10/16/15 12/11/18 Cholecalciferol (Vitamin D3) 2,000 unit PO HS 06/29/17 12/11/18 [Vitamin D3] Prochlorperazine [Compazine] 10 mg PO Q6H PRN 06/29/17 12/11/18 ALPRAZolam [Xanax] 0.25 mg PO TID PRN 07/13/18 12/11/18 Calcium Carbonate/Vitamin D3 1 tab PO HS 07/13/18 12/11/18 [Calcium 250-D Tablet] Diclofenac Sodium/Misoprostol 1 tab PO BID PRN 07/13/18 12/11/18 [Arthrotec 50 mg-200 Mcg Tab] Doxycycline [Vibramycin] 50 mg PO DAILY 07/13/18 12/11/18 glipiZIDE [Glucotrol] 5 mg PO AC-BRKFST 07/13/18 12/11/18 Atorvastatin [Lipitor] 20 mg PO DAILY 12/11/18 12/11/18 metFORMIN HCL 2,000 mg PO BID 12/11/18 12/11/18 Previous Rx's Medication Instructions Recorded Cyclobenzaprine [Flexeril] 5 mg PO TID PRN #15 tablet 04/21/19 Lidocaine 5% Patch [Lidoderm] 1 patch TOPICAL DAILY #6 patch 04/21/19 Docusate Sodium [Dok] 100 mg PO BID #20 capsule 09/10/19 Fluconazole [Diflucan] 150 mg PO DAILY 1 Days #1 tab 07/12/20 Cephalexin [Keflex] 500 mg PO BID 5 Days #10 cap 07/15/20 Allergies Allergy/AdvReac Type Severity Reaction Status Date / Time famotidine [From Pepcid] Allergy THROWING Verified 07/15/20 13:02 UP, BLOODY DIARRHEA latex Allergy Unknown Verified 07/15/20 13:02 Sulfa (Sulfonamide Allergy Rash/Hives Verified 07/15/20 13:02 Antibiotics) adhesive tape AdvReac Rash/Hives Verified 07/15/20 13:02 azithromycin AdvReac Unknown Verified 07/15/20 13:02 [From Zithromax Z-Berto] ibuprofen [From Motrin] AdvReac KIDNEY'S Verified 07/15/20 13:02 prednisone AdvReac Swelling Verified 07/15/20 13:02 steroids AdvReac Unknown Uncoded 07/15/20 13:02 Review of Systems ROS Statement: Those systems with pertinent positive or pertinent negative responses have been documented in the HPI. ROS Other: All systems not noted in ROS Statement are negative. Past Medical History Past Medical History: Diabetes Mellitus, Hyperlipidemia, Hypertension Additional Past Medical History / Comment(s): NIDDM type II , gastritis, arthritis, ibs, g-annulare, COLITIS, History of Any Multi-Drug Resistant Organisms: None Reported Past Surgical History: Cholecystectomy, Orthopedic Surgery Additional Past Surgical History / Comment(s): 2006 EGD, 2 left knee surgeries- arthroscopic and open knee surgery, bx rt arm Past Anesthesia/Blood Transfusion Reactions: Motion Sickness, Postoperative Nausea & Vomiting (PONV) Past Psychological History: Anxiety, Bipolar, Schizophrenia Smoking Status: Never smoker Past Alcohol Use History: None Reported Past Drug Use History: None Reported - Past Family History Father Family Medical History: Cancer Additional Family Medical History / Comment(s): Father of pancreatic cancer at the age of 52 yrs. Mother History Unknown: Yes General Exam - General Exam Comments Initial Comments: GENERAL: Patient is well-developed and well-nourished. Patient is nontoxic and in no acute distress. HEAD: Atraumatic, normocephalic. EYES: Pupils equal round and reactive to light, extraocular movements intact, sclera anicteric, conjunctiva are normal. Eyelids were unremarkable. ENT: Nares patent, oropharynx clear without exudates. Moist mucous membranes. NECK: Normal range of motion, supple without lymphadenopathy or JVD. LUNGS: Unlabored respirations. Breath sounds clear to auscultation bilaterally and equal. No wheezes rales or rhonchi. HEART: Regular rate and rhythm without murmurs, rubs or gallops. ABDOMEN: Soft, nontender, normoactive bowel sounds. No guarding, no rebound. No masses appreciated. MUSCULOSKELETAL: Normal extremities with adequate strength and normal range of motion, no pitting or edema. No clubbing or cyanosis. NEUROLOGICAL: Patient is alert and oriented x 3. Motor and sensory are also intact. Cranial nerves II through XII grossly intact. Symmetrical smile. Normal speech, normal gait. PSYCH: Normal mood, normal affect. SKIN: Warm, Dry, normal turgor, no rashes or lesions noted. Limitations: no limitations External exam: Present: normal external exam Speculum exam: Present: normal speculum exam. Absent: cervical discharge, vaginal bleeding, foreign body Course Vital Signs 07/15/20 12:58 Temperature 98.4 F Pulse Rate 88 Respiratory 18 Rate Blood Pressure 131/75 O2 Sat by Pulse 99 Oximetry Medical Decision Making - Medical Decision Making Patient is 64-year-old female here with concerns of a bump inside her vagina wall. No fevers, nothing visualized on exam. I discussed with patient that we will start her on some antibiotics for possible cyst in her vagina however she is to follow-up with [facility]. I will give her referral. She is stable for discharge. Return parameters were discussed with the patient she verbalized understanding. Case discussed with Dr. Finn. - Lab Data Lab Results 07/15/20 Range/Units 14:01 Urine Color Light Yellow Urine Appearance Clear (Clear) Urine pH 7.0 (5.0-8.0) Ur Specific [place] 1.021 (1.001-1.035) Urine Protein Negative (Negative) Urine Glucose (UA) Negative (Negative) Urine Ketones Negative (Negative) Urine Blood Negative (Negative) Urine Nitrite Negative (Negative) Urine Bilirubin Negative (Negative) Urine Urobilinogen <2.0 (<2.0) mg/dL Ur Leukocyte Esterase Trace H (Negative) Urine RBC 1 (0-5) /hpf Urine WBC 2 (0-5) /hpf Ur Squamous Epith Cells 1 (0-4) /hpf Disposition Clinical Impression: Vaginal cyst Disposition: HOME SELF-CARE Condition: Stable Instructions (If sedation given, give patient instructions): Normal Exam (ED) Additional Instructions: Please return to the Emergency Department if symptoms worsen or any other concerns. Take antibiotic as prescribed. Follow-up with gynecology as discussed. Prescriptions: Cephalexin [Keflex] 500 mg PO BID 5 Days #10 cap Is patient prescribed a controlled substance at d/c from ED?: No Referrals: Nonstaff,Physician [Primary Care Provider] - 1-2 days Hunter Redding DO [Doctor of Osteopathic Medicine] - 1-2 days
[2020-07-15 14:20] LABS: Appearance,Urine Clear (Clear); Bilirubin,Urine Negative (Negative); Blood,Urine Negative (Negative); Color,Urine Light Yellow; Glucose,Urine (UA) Negative (Negative); Ketones,Urine Negative (Negative); Leukocyte Esterase,Urine Trace (Negative); Nitrite,Urine Negative (Negative); Protein,Urine Negative (Negative); RBC,Urine 1 /hpf (0-5); Specific Gravity,Urine 1.021 (1.001-1.035); Squamous Epithelial Cell,Urine 1 /hpf (0-4); Urobilinogen,Urine <2.0 mg/dL (<2.0); WBC,Urine 2 /hpf (0-5)
== END 2020-07-15 14:53 | disposition home or self-care (01) ==
LOC: EC 12:48
DX: N89.8 Other specified noninflammatory disorders of vagina (principal); E11.9 Type 2 diabetes mellitus without complications; E78.5 Hyperlipidemia, unspecified; F41.9 Anxiety disorder, unspecified; I10 Essential (primary) hypertension; Z79.82 Long term (current) use of aspirin; Z87.19 Personal history of other diseases of the digestive system; Z79.84 Long term (current) use of oral hypoglycemic drugs
CPT/HCPCS: 81001; 99283

== ENCOUNTER → 2020-07-16 | Outpatient (CLI) | payer MEDICARE ==
[2020-07-16 10:15] VITALS: BP 129/78; PULSE 72; RESP 18; TEMP 98.2
--- NOTE | 2020-07-16 13:45 | P.HPOB ---
History of Present Illness H&P Date: 07/16/20 Chief Complaint: Abnormal growth had vaginal opening with acute pain This is a 64-year-old with an LMP of approximately 2009. The patient is here to establish with this office and has been experiencing throbbing pain that seems to be associated with a lump that she notices at the vaginal opening. She states she started feeling a lump at the vaginal opening about 4 months ago. It was not painful and did not cause much problem. The lump seem to come and go. About 4 days ago she developed significant throbbing pain in the vaginal area and went to the emergency room. She states she was treated with Diflucan 1. She returned to the emergency room yesterday because of severe throbbing pain that was rated 10 out of 10. She was told she had an unremarkable vaginal exam at that time. She was treated with oral Keflex. Her pain today is 0.5 out of 10. She denies any abnormal vaginal bleeding. Review of Systems The patient's weight has been stable over the last year. She recently started a Keto diet to try to lose weight. She denies respiratory, cardiac, or G.I. problems. Past Medical History Past Medical History: Diabetes Mellitus, Hyperlipidemia, Hypertension Additional Past Medical History / Comment(s): NIDDM type II , gastritis, arthritis, ibs, g-annulare, ulcerative colitis. PAST PARALEGAL HISTORY: She has no history of STDs. History of Any Multi-Drug Resistant Organisms: None Reported Past Surgical History: Cholecystectomy, Orthopedic Surgery Additional Past Surgical History / Comment(s): 2019 upper endoscopy, 2 left knee surgeries-arthroscopic and open knee surgery, bx rt arm, bilateral oophorectomy 2016(benign mass) Past Anesthesia/Blood Transfusion Reactions: Motion Sickness, Postoperative Nausea & Vomiting (PONV) Past Psychological History: Anxiety, Bipolar, Schizophrenia Additional Psychological History / Comment(s): Pt states she lives alone. She is independent. She uses no assistive device. She drives a car. Her medication for her paranoid bipolar/schizophrenia works well for her. Smoking Status: Never smoker Past Alcohol Use History: None Reported Past Drug Use History: None Reported Additional History: She is a since 2004 and is not seeing anybody at this time and is not sexually active. She is retired. - Past Family History Father Family Medical History: Cancer, Coronary Artery Disease (CAD) Additional Family Medical History / Comment(s): Father of pancreatic cancer at the age of 52 yrs. Paternal grandfather had diabetes. Mother Family Medical History: CVA/TIA, Myocardial Infarction ([place]) Additional Family Medical History / Comment(s): Maternal grandfather had colon cancer. Medications and Allergies Home Medications Medication Instructions Recorded Confirmed Type Aspirin EC [Ecotrin] 81 mg PO HS 10/14/15 07/16/20 History Benazepril HCl 20 mg PO QAM 10/14/15 07/16/20 History OXcarbazepine [Trileptal] 150 mg PO HS 10/16/15 07/16/20 History Prochlorperazine [Compazine] 10 mg PO Q6H PRN 06/29/17 07/16/20 History ALPRAZolam [Xanax] 0.25 mg PO TID PRN 07/13/18 07/16/20 History Calcium Carbonate/Vitamin D3 1 tab PO HS 07/13/18 07/16/20 History [Calcium 250-D Tablet] Diclofenac Sodium/Misoprostol 1 tab PO BID PRN 07/13/18 07/16/20 History [Arthrotec 50 mg-200 Mcg Tab] Doxycycline [Vibramycin] 50 mg PO DAILY 07/13/18 07/16/20 History glipiZIDE [Glucotrol] 5 mg PO AC-BRKFST 07/13/18 07/16/20 History Atorvastatin [Lipitor] 20 mg PO DAILY 12/11/18 07/16/20 History metFORMIN HCL 2,000 mg PO BID 12/11/18 07/16/20 History Cephalexin [Keflex] 500 mg PO BID 5 Days #10 cap 07/15/20 07/16/20 Rx Acarbose 50 mg PO TID 07/16/20 07/16/20 History Cranberry Fruit Extract [Cranberry] 200 mg PO DAILY 07/16/20 07/16/20 History Allergies Allergy/AdvReac Type Severity Reaction Status Date / Time famotidine [From Pepcid] Allergy THROWING Verified 07/16/20 10:15 UP, BLOODY DIARRHEA latex Allergy Unknown Verified 07/16/20 10:15 Sulfa (Sulfonamide Allergy Rash/Hives Verified 07/16/20 10:15 Antibiotics) adhesive tape AdvReac Rash/Hives Verified 07/16/20 10:15 azithromycin AdvReac Unknown Verified 07/16/20 10:15 [From Zithromax Z-Berto] ibuprofen [From Motrin] AdvReac KIDNEY'S Verified 07/16/20 10:15 prednisone AdvReac Swelling Verified 07/16/20 10:15 steroids AdvReac Unknown Uncoded 07/16/20 10:15 Exam Vital Signs Temp Pulse Resp BP Pulse Ox 07/16/20 09:58 98.2 F 72 18 129/78 100 Intake and Output 07/15/20 07/16/20 07/16/20 22:59 06:59 14:59 Other: Weight 92.079 kg Height 5 feet 4 inches, weight 203 pounds, BMI 34.8. This is a well-developed well-nourished white female who is alert and oriented times 3 in no acute distress. HEENT: Within normal limits. CHEST AND LUNGS: Clear to auscultation. HEART: Regular rate and rhythm. BACK: Negative for CVA tenderness. ABDOMEN: Soft, nontender, without palpable masses. PELVIC EXAM: Normal external genitalia with mild atrophy. Cervix appears multiparous and there is a prominent polypoid mass originating from the 8 o'clock position of this endocervix the mass is light pink and has a smooth surface. The mass measures approximately 2.5 x 1.5 cm and is on a thinner stalk measuring approximately 0.5 cm. This has a benign appearance. There are 2 other endocervical polypoid growths each measuring approximately 8-9 mm. The attachments of these seem to be higher in the endocervical canal and the exact attachment is not visible. With Valsalva the cervix and the polypoid mass seem to approach the introitus with the mass coming to within 4 cm of the introitus. There is no cervical motion tenderness. There is mild uterine prolapse but no significant cystocele or rectocele. The uterus is midposition, nongravid size and nontender. There are no palpable adnexal masses or tenderness. RECTAL EXAM: Deferred. EXTREMITIES: Nontender. IMPRESSION: 1. 64-year-old menopausal female with pedunculated cervical polypoid mass measuring impression a 2.5 x 1.5 cm with 2 smaller endocervical polypoid masses each measuring approximately 9 mm. 2. Acute pelvic pain which has significantly improved during the past 5 days. She seemed to think that the pain was associated with the time she could palpate the lump at the vaginal opening. This may have been related to a stretching of the stalk of the polypoid mass or possibly pulling of the cervix at the attachment of the polypoid mass. PLAN: 1. Pap smear was performed. 2. The patient and I had a long discussion regarding the polypoid masses. The decision was made to remove one or more of the polypoid masses. We discussed possible risks of this type of procedure including bleeding and infection. 3. The large cervical polypoid mass was removed in the office. Please see the procedure note for additional details. Await pathology. 4. If the removed cervical polypoid mass and the Pap smear are benign she will return in approximately 3 months for reevaluation and her well woman examination. If abnormal pathology or cytology, consider referral for further evaluation and possible removal of the 2 remaining polypoid masses. 5. She was instructed to call she's having any problems following the procedure including heavy vaginal bleeding, unusual pain or fever. 6. She will return in approximately 3 months for reevaluation and as needed depending on if symptoms recur or if the pathology or cytology are abnormal.
--- NOTE | 2020-07-16 14:04 | P.PCN ---
Date of Procedure: 07/16/20 Preoperative Diagnosis: Large endocervical polypoid mass Postoperative Diagnosis: Same Procedure(s) Performed: Excision of cervical polypoid mass Anesthesia: none Surgeon: Cachorro Lima Estimated Blood Loss (ml): 15 Pathology: other (cervical polypoid mass) Condition: stable Disposition: same day Indications for Procedure: This was a 64-year-old with an LMP of approximately 2008. The patient was seen in the emergency room yesterday for acute pelvic pain and a lump at the vaginal opening. She has noticed the lump on and off since March 2020. It usually caused no pain or problems, however, over the past 4 days she has been having acute pains that are described as throbbing. She was seen in the emergency room because of this pain. On vaginal exam today, she was noted to have a fairly large polypoid mass measuring 2.5 x 1.5 cm with an attachment at the 8 o'clock position of the endocervix. Please see today's history and physical for additional details. Operative Findings: There is a 2.5 x 1.5 cm polypoid mass on a fairly thin stalk measuring approximately 0.5 cm with an attachment to the 8 o'clock position of the endocervix. 2 additional endocervical polypoid masses measuring each approximately 8-9 mm were noted in the endocervix which also had a benign appearance. The attachments were higher up in the cervix and could not be visualized. A relatively large blood vessel was noted in the stalk after the mass was excised at the stalk. Description of Procedure: The procedure was discussed with the patient's and we also discussed possible risks and complications. The patient was placed in the lithotomy position. A speculum was inserted into the vagina. The cervix and vagina were prepped with Betadine solution. The stalk of the polypoid mass was grasped with Bosman forceps and the mass was excised. Upon releasing the clamp on the stalk, active bleeding was immediately noted and the type of bleeding resembled arterial type bleeding. The stalk was again grasped with the Bosman forceps. A suture was then placed at the tip of the Bosman forceps and this was tied to secure the bleeding vessel. A minimal amount of oozing was noted and this was touched with a silver nitrate stick. H emostasis was obtained. Because of the bleeding encountered with the removal of the larger polypoid mass, and because the smaller polypoid masses were higher in the endocervix, the decision was made to not proceed with removal of the smaller polypoid masses. The cervix was observed for several minutes and the cervix remained hemostatic. The patient tolerated the procedure well. Estimated blood loss 15 mL. There were no complications. The patient was observed for several more minutes following the procedure and no bleeding was noted from the vagina. Postprocedure blood pressure 152/81, pulse 76 with pulse oximeter 100%. The patient was discharged home in stable condition. The patient was instructed to avoid any strenuous activity for 1 week. She was also instructed to stay home with minimal walking today. After today, she can gradually increase her walking for general errands but not to walk or runs for exercise. She was also instructed to abstain from all sexual activity for the upcoming week. She states she is not sexually active. She was instructed to call if problems including unusual pain, heavy vaginal bleeding, fever or problems. If problems occur during our off hours, she was instructed to go to the emergency room. Specimens sent: Polypoid cervical mass.
--- NOTE | 2020-07-17 15:48 | P.PN ---
Progress Note - Text Progress Note Date: 07/17/20 Post procedure check. She had some mild pains after the cervical polyp removal yesterday. Doing fine today. Vaginal bleeding very light. Call call if problems. Await path report.
--- NOTE | 2020-07-22 12:17 | P.PN ---
Progress Note - Text Progress Note Date: 07/22/20 OUTPATIENT FOLLOW-UP NOTE TEST(S)/RESULTS: Polypoid mass removed from the endocervix on 07/16/2020 was a benign endocervical polyp by the pathology report. METHOD OF NOTIFICATION: A message with this result was left on the patient's voicemail. PATIENT COMMENTS: DIAGNOSIS: Benign endocervical polyp. DISCUSSION: Await Pap smear results. PLAN: As above. Pelvic ultrasound was also recommended and this has not been done yet.
--- NOTE | 2020-07-23 10:35 | P.PN ---
Progress Note - Text Progress Note Date: 07/23/20 OUTPATIENT FOLLOW-UP NOTE TEST(S)/RESULTS: Test results from 07/16/2020 include negative Pap smear and negative high risk HPV testing. METHOD OF NOTIFICATION: A message with these results was left on the patient's voicemail. PATIENT COMMENTS: DIAGNOSIS: Negative Pap smear cotest. DISCUSSION: The patient has artery been notified about the benign endocervical polyp pathology. PLAN: The patient is to have a pelvic ultrasound as recommended at her 07/18/2020 visit.
== END | disposition home or self-care (01) ==
LOC: WWCWWP 09:49
PROVIDERS: ATTEND Obstetrics & Gynecology
DX: N87.9 Dysplasia of cervix uteri, unspecified (principal); N84.1 Polyp of cervix uteri
CPT/HCPCS: 88305

== ENCOUNTER → 2020-07-18 | Outpatient (CLI) | payer MEDICARE ==
[2020-07-18 10:12] VITALS: BP 165/88; PULSE 86; RESP 18; TEMP 97.6
--- NOTE | 2020-07-18 11:13 | P.PN ---
Progress Note - Text Progress Note Date: 07/18/20 Chief Complaint: The patient woke today with vulvar pain and pelvic pain HPI: This is a 64-year-old with an LMP of 2008. The patient was seen on 07/16/2020 for a lump that she noticed at the vaginal opening and throbbing pain. A polypoid mass was removed that was protruding from the cervix that measured approximately 2.5 x 1.5 cm on 07/16/2020. There was bleeding from the stalk that was made hemostatic with a single suture tie. I called the patient one day after the procedure as a postprocedure check and she states she was doing well and denied any significant bleeding. The patient called this morning to say she woke up with vulvar discomfort on the left side which she described as pressure, burning and dull. When I spoke with her on the phone this morning, she said the pain was 10 out of 10. She is not having any vaginal bleeding. She also describes a crampy-type discomfort in the groin area bilaterally. She states she felt something pull when she bent over to pick something up from the ground yesterday. The discomfort was not very severe at that time but was worse this morning when she woke up. ROS: She denies respiratory, cardiac, or GI problems. She denies any urinary symptoms. PE: Blood pressure: 165/88, Height: 5 feet 4 inches, Weight: 204 pounds, Te mperature: 7.6, Pulse: 86. Pulse oximeter 100%. This is a well developed, well nourished, white female who is alert and orientedx3, in no acute distress. Abdomen: Soft, nontender without palpable mass. Pelvic exam: Normal external genitalia to inspection. There is no erythema, lesions, or abrasions. The posterior left labia majora is mildly tender with palpation, it there are no palpable masses or evidence of inflammation. The rest of the external genitalia is nontender. The cervix still has 2 small polypoid growths in the endocervix each measuring approximately 8 or 9 mm. There is a stitch on a stalk that was cut to remove the larger mass protruding from the cervix. The stitches intact and there is no blood. There is no unusual discharge. There is no cervical motion tenderness. There are no palpable adnexal masses or tenderness. The uterus is nontender and nongravid size. The patient states she is experiencing some cramping in the low abdomen and groin area bilaterally. Impression: 1. 64-year-old menopausal female status post removal of a polypoid mass protruding from the cervix yesterday. 2. Nonspecific left vulvar pain with no significant findings other than mild tenderness on exam today. I doubt this is related to the procedure done yesterday. 3. Bilateral groin and pelvic pain without significant physical findings on exam today. Differential diagnosis for the pelvic pain would include uterine fibroids and non-gynecologic pain such as GI pain. 4. Her physical findings and general appearance seem out of proportion to her pain description and rating of 10 out of 10. Plan: 1. I have tried to reassure the patient that I do not feel there is any severe acute condition that requires urgent treatment at this time. I do not feel the pains that she had is describing is related to the removal of the polypoid growth done in the office yesterday. 2. She was instructed to minimize activity for the next 3 days since she says bending over seem to cause some discomfort yesterday. She has been told that she can go to the emergency room if she is having any acute urgent problems. 3. Pelvic ultrasound will be ordered. The order slip was given to the patient for this. She will wait until after 07/22/2020 since a transvaginal ultrasound could potentially disturb the stitch on the stalk that was attached to the polypoid mass that was removed. 4. Await pathology report from the polypoid mass. 5. She can take [id number] Tylenol as needed as directed for pain. Time spent with the patient: 20 minutes
== END | disposition home or self-care (01) ==
LOC: LABWHC1 09:51
PROVIDERS: ATTEND Obstetrics & Gynecology
DX: R10.2 Pelvic and perineal pain (principal); Z78.0 Asymptomatic menopausal state; Z98.890 Other specified postprocedural states

== ENCOUNTER → 2020-09-02 | Outpatient (CLI) | payer MEDICARE ==
--- NOTE | 2020-09-02 10:22 | US ---
EXAMINATION TYPE: US pelvic complete DATE OF EXAM: 09/02/2020 COMPARISON: US 2016 CLINICAL HISTORY: R10.2, Pelvic pain. Pre scan for possible D&C or hysterectomy, 2, para 2, h istory of bilateral oophorectomy. TECHNIQUE: . Transabdominal sonographic images of the pelvis were acquired. Transvaginal sonographi c images were medically necessary to better assess the following anatomy: uterus and endometrium Date of LMP: 10+ years ago EXAM MEASUREMENTS: Uterus: 5.8 x 3.6 x 4.2 cm Endometrial Stripe: cm Difficult and limited due to patient body habitus and patient unable to position legs properly for transvaginal exam. 1. Uterus: limited visualization, heterogeneous 2. Endometrium: limited visualization, appears wnl 3. Right Ovary: surgically absent 4. Left Ovary: surgically absent 5. Bilateral Adnexa: wnl 6. Posterior cul-de-sac: wnl Suboptimal study. Heterogeneous retroflexed uterus. Endometrium not well seen on images saved is pres umed atrophic. No free fluid. Ovaries noted surgically absent. IMPRESSION: As above.
--- NOTE | 2020-09-02 14:12 | P.PN ---
Progress Note - Text Progress Note Date: 09/02/20 OUTPATIENT FOLLOW-UP NOTE TEST(S)/RESULTS: Pelvic ultrasound done on 09/02/2020 did not show any abnormalities to explain for her pains. METHOD OF NOTIFICATION: A message with this result was left on the patient's voicemail. PATIENT COMMENTS: DIAGNOSIS: Pelvic and groin pain is not explained by pelvic ultrasound. DISCUSSION: The pelvic ultrasound was limited since they were not able to do a transvaginal study since the patient's legs were not able to be positioned properly for the transvaginal exam. PLAN: She was instructed to call she has questions or problems otherwise she was seen for her annual well woman examination.
--- NOTE | 2020-09-02 15:27 | P.PN ---
Progress Note - Text Progress Note Date: 09/02/20 The patient did call back regarding her pelvic ultrasound done earlier today. No abnormal findings were noted. The patient states she did have slight irritation in the vagina after the ultrasound was done so she took a shower. The patient will make an appointment for a well woman examination in the near future along with a screening mammogram since she is due for that as well.
== END | disposition home or self-care (01) ==
LOC: RADUSWWP 08:05
PROVIDERS: ATTEND Obstetrics & Gynecology
DX: R10.2 Pelvic and perineal pain (principal)
CPT/HCPCS: 76830; 76856